=== PATIENT | female | born 1950 | race Hispanic/Latino ===

== ENCOUNTER → 2018-01-18 | Day surgery (SDC) | payer MEDICARE ==
[2018-01-17 12:23] LABS: BASOPHILS % 0.4 % (0.0-1.0); EOSINOPHILS # (AUTO) 0.2 (0.0-0.4); EOSINOPHILS % 2.6 % (0.0-6.0); HEMATOCRIT 43.8 % (34.2-44.1); HEMOGLOBIN 14.1 g/dL (12.0-16.0); LYMPHOCYTES # (AUTO) 2.8 (1.0-3.2); LYMPHOCYTES % 37.4 % (18.0-39.1); MEAN CORPUSCULAR HEMOGLOBIN 30.1 pg (28-32); MEAN CORPUSCULAR HGB CONC 32.2 g/dL (31-35); MEAN CORPUSCULAR VOLUME 93.6 fL (81-99); MONOCYTES # (AUTO) 0.6 (0.2-0.8); MONOCYTES % 7.9 % (4.4-11.3); NEUTROPHILS # (AUTO) 3.8 (2.1-6.9); NEUTROPHILS % 51.6 % (38.7-80.0); PLATELET COUNT 238 x10e3/uL (140-360); RED BLOOD COUNT 4.68 x10e6/uL (3.6-5.1); RED CELL DISTRIBUTION WIDTH 13.5 % (11.7-14.4)
[2018-01-17 12:33] LABS: INR 1.02; PROTHROMBIN TIME 12.6 seconds (11.9-14.5)
[2018-01-17 12:44] LABS: ALANINE AMINOTRANSFERASE 17 IU/L (0-55); ALBUMIN 3.7 g/dL (3.5-5.0); ALBUMIN/GLOBULIN RATIO 1.1 (0.8-2.0); ALKALINE PHOSPHATASE 52 IU/L (40-150); ANION GAP 13.6 mmol/L (8-16); BLOOD UREA NITROGEN 19 mg/dL (7-26); BUN/CREATININE RATIO 23 (6-25); CALCIUM 9.3 mg/dL (8.4-10.2); CARBON DIOXIDE 25 mmol/L (22-29); CHLORIDE 109 mmol/L (98-107); CHOLESTEROL 223 MD/DL (0-199); CREATININE, SERUM 0.82 mg/dL (0.57-1.11); EST GLOMERULAR FILTRATION RATE > 60 ML/MIN (60-); GLUCOSE 99 mg/dL (74-118); HDL CHOLESTEROL 74 MG/DL (40-60); LDL CHOLESTEROL 112 MG/DL (60-130); POTASSIUM 4.6 mmol/L (3.5-5.1); SODIUM 143 mmol/L (136-145); TRIGLYCERIDES 186 MG/DL (0-149)
[~2018-01-18] VITALS: Ht 154.9 cm; Wt 78.9 kg
[2018-01-18] VITALS (14 sets, daily range): BP systolic 114–138; BP diastolic 70–83
[~2018-01-18] MED LIST: FENTANYL CITRATE/PF 100MCG/2 ML INJ ONE; HEPARIN SOD (PORCINE) 1000 UNIT/ML 30ML ONE; HEPARIN SOD/SOD CHLORIDE 2,000 ML ONE; IOPAMIDOL 370 MG/ML 200 ML INFUS..BTL INJ ONE; LIDOCAINE HCL 2% LOCAL 20 ML VIAL ONE; MIDAZOLAM HCL 2 MG/2 ML VIAL ONE; NITROGLYCERIN/D5W 200 MCG/ML 250 ML ONE; SODIUM CHLORIDE 0.9% 1000ML 1,000 ML ONE; VERAPAMIL HCL 2.5 MG/ML 2 ML VIAL ONE
--- NOTE | 2018-01-18 09:52 | Operative Report ---
DATE OF PROCEDURE: January 18, 2018 PROCEDURE: Cardiac catheterization. INDICATIONS FOR THE PROCEDURE: Chest pain and shortness of breath. PRE-SEDATION ASSESSMENT: Medical history, social history, previous experience of the anesthesia were reviewed and documented in the preoperative record. Also the relevant diagnostic studies were reviewed. Planned choice of anesthesia, risks, complications, benefits and alternatives were discussed. Patient was deemed an appropriate candidate for moderate sedation. CONSENT: Benefits, risks, complications, alternatives to the procedure were discussed with the patient. Informed consent was obtained from patient. MEDICATIONS: Please see nursing notes for medications administered during the procedure. PROCEDURE: Patient was brought to the cardiac catheterization laboratory in a fasting state. The right wrist was prepped and draped in a sterile fashion. Lidocaine 1% was used to infiltrate the right wrist over the radial artery. A size 6 Slender sheath was placed in the right radial artery using the Seldinger technique. Coronary angiography was performed using a [employer] diagnostic catheter. Multiple orthogonal views were obtained of each coronary artery. All catheters were removed over a guidewire. Access site was closed using a TR band. The case ended without any complications. Estimated blood loss approximately 20 mL. Left heart catheterization was performed using an angled pigtail catheter. FINDINGS 1. Left main coronary artery: Large caliber, long. No coronary artery disease. 2. Left anterior descending artery: A large vessel, goes to the apex, tortuous and distally small in caliber. No significant coronary artery disease. 3. Left circumflex artery: A small caliber, nondominant vessel. No significant coronary artery disease. 4. RCA: Very large, dominant RCA. A large RPL system. Small RPDA. No significant coronary artery disease. COMPLICATIONS: None. SPECIMEN REMOVED: None. IMPLANTS: None. ESTIMATED BLOOD LOSS: 20 mL. RECOMMENDATIONS: 1. Unusual TR band protocol. 2. Continue optimal medical therapy and risk factor control. 3. Call the office for followup in 2 weeks post procedure. Job#: [id number] TERRY
== END | disposition home or self-care (01) ==
LOC: CATH LAB 06:01
PROVIDERS: ATTEND Internal Medicine
DX: I20.8 Other forms of angina pectoris (principal); I10 Essential (primary) hypertension; Z01.812 Encounter for preprocedural laboratory examination; Z68.33 Body mass index [BMI] 33.0-33.9, adult
CPT/HCPCS: 36415; 80053; 80061; 85025; 85610; 93458; C1769; J1644; J2001; J2250; J7030; Q9967

== ENCOUNTER → 2022-08-25 | Day surgery (SDC) | payer MEDICARE ==
[2022-08-24 13:09] LABS: BASOPHILS # (AUTO) 0.1 (0.0-0.1); BASOPHILS % 0.6 % (0.0-1.0); EOSINOPHILS # (AUTO) 0.2 (0.0-0.4); EOSINOPHILS % 2.1 % (0.0-6.0); HEMATOCRIT 44.5 % (34.2-44.1); HEMOGLOBIN 14.1 g/dL (12.0-16.0); LYMPHOCYTES # (AUTO) 2.7 (1.0-3.2); LYMPHOCYTES % 33.9 % (18.0-39.1); MEAN CORPUSCULAR HEMOGLOBIN 30.1 pg (28-32); MEAN CORPUSCULAR HGB CONC 31.7 g/dL (31-35); MEAN CORPUSCULAR VOLUME 95.1 fL (81-99); MONOCYTES # (AUTO) 0.5 (0.2-0.8); MONOCYTES % 6.4 % (4.4-11.3); NEUTROPHILS # (AUTO) 4.5 (2.1-6.9); NEUTROPHILS % 56.7 % (38.7-80.0); PLATELET COUNT 231 x10e3/uL (140-360); RED BLOOD COUNT 4.68 x10e6/uL (3.6-5.1); RED CELL DISTRIBUTION WIDTH 13.2 % (11.7-14.4)
[~2022-08-25] MED LIST changes: +ACETAMINOPHEN 1000 MG/100 ML 100 ML IV ONE; +BUPIVACAINE HCL 0.5% INJ 30 ML VIAL INJ ONE; +CEFAZOLIN SODIUM 2 GM ONE; +DEXAMETHASONE SOD PHOS INJ 4 MG/ML SDV ONE; +EPHEDRINE SULFATE INJ 50 MG/ML VIAL ONE; +EPINEPHRINE 1 MG/ML 30ML VIAL ONE; -HEPARIN SOD (PORCINE) 1000 UNIT/ML 30ML ONE; -HEPARIN SOD/SOD CHLORIDE 2,000 ML ONE; +IBUPROFEN200 MG PO; -IOPAMIDOL 370 MG/ML 200 ML INFUS..BTL INJ ONE; +LACTATED RINGER'S 1,000 ML ONE; -LIDOCAINE HCL 2% LOCAL 20 ML VIAL ONE; +LIDOCAINE HCL 2% LOCAL INJ 5 ML SDV VIAL INJ ONE; +METOCLOPRAMIDE HCL 10 MG/2ML VIAL ONE; -NITROGLYCERIN/D5W 200 MCG/ML 250 ML ONE; +ONDANSETRON HCL INJ 2MG/ML 2ML 2 MG/ML VIAL IV ONE; +ONDANSETRON HCL INJ 2MG/ML 2ML 2 MG/ML VIAL ONE; +PHENYLEPHRINE HCL 1% 10 MG/ML VIAL ONE; +POVIDONE IODINE 0.05% 0.05 % ML PO ONE; +PROMETHAZINE HCL (IM) 25 MG/ML VIAL IM ONE; +PROPOFOL IV EMULSION 10 MG/ML 20 ML VIAL ONE; +ROCURONIUM BROMIDE 10 MG/ML 5ML VIAL IV ONE; +SEVOFLURANE INHAL SOLN 250 ML PEN BTL ONE; -SODIUM CHLORIDE 0.9% 1000ML 1,000 ML ONE; +SUGAMMADEX SODIUM 200 MG/2 ML VIAL IV ONE; -VERAPAMIL HCL 2.5 MG/ML 2 ML VIAL ONE; +VITAMIN B; +VITAMIN C1000 MG PO
[2022-08-25 13:45] VITALS: BP 117/63
== END | disposition home or self-care (01) ==
LOC: OR 07:29
PROVIDERS: ATTEND Specialist
DX: M75.121 Complete rotator cuff tear or rupture of right shoulder, not specified as traumatic (principal); S43.431A Superior glenoid labrum lesion of right shoulder, initial encounter; S46.111A Strain of muscle, fascia and tendon of long head of biceps, right arm, initial encounter; M19.011 Primary osteoarthritis, right shoulder; M65.811 Other synovitis and tenosynovitis, right shoulder; X58.XXXA Exposure to other specified factors, initial encounter; Z01.810 Encounter for preprocedural cardiovascular examination; Z01.812 Encounter for preprocedural laboratory examination; Z01.818 Encounter for other preprocedural examination; Z79.1 Long term (current) use of non-steroidal anti-inflammatories (NSAID)
CPT/HCPCS: 29824; 29826; 29827; 36415; 71046; 85025; 93005; C1713; J0131; J1100; J2001; J2250; J2370; J2405; J2550; J2704; J2765; J3010; J7121